=== PATIENT | female | born 1950 | race Caucasian/White ===

== ENCOUNTER 2022-11-02 15:56 | Outpatient (CLI) | payer MEDICARE, SELFPAY ==
[2022-11-02 14:59] LABS: Chloride* 97 mmol/L (96-114)
[2022-11-02 15:00] LABS: Albumin* 4.2 g/dL (3.3-5.0); Sodium* 131 mmol/L (135-149)
[2022-11-02 15:02] LABS: Cholesterol* 210 mg/dL (90-199); Creatinine* 0.7 mg/dL (0.5-1.5); Estimated Glomerular Filt Rate 92 ml/min
[2022-11-02 15:03] LABS: Alanine Aminotransferase* 19 U/L (4-35); Alkaline Phosphatase* 63 U/L (40-150); Aspartate Amino Transferase* 28 U/L (12-35); Bilirubin Total* 0.7 mg/dL (0.1-1.5); Blood Urea Nitrogen* 13 mg/dL (7-30); Calcium* 9.1 mg/dL (8.4-10.6); Carbon Dioxide* 28 mmol/L (20-32); Glucose* 90 mg/dL (60-115); Triglycerides* 70 mg/dL (40-149)
[2022-11-02 15:04] LABS: HDL Cholesterol* 78 mg/dL (>=50); LDL Cholesterol Calculated 118 mg/dL (<100)
[2022-11-02 15:19] LABS: Vitamin D 25 Hydroxy* 71 ng/mL (30-80)
[2022-11-02 15:37] LABS: Ferritin* 64.7 ng/mL (11.1-264.0)
[2022-11-05 00:33] LABS: Cortisol, Serum 10.9 ug/dL
== END 2022-11-02 15:57 | disposition home or self-care (01) ==
PROVIDERS: PCP Family Medicine; Visit Provider Family Medicine
DX: Z00.00 Encounter for general adult medical examination without abnormal findings (principal); R53.83 Other fatigue
CPT/HCPCS: 80053; 80061; 82306; 82533; 82728

== ENCOUNTER 2022-12-08 19:27 | Outpatient (CLI) | payer MEDICARE, SELFPAY ==
--- NOTE | 2022-12-15 14:21 | W.PM.SLEEP ---
Sleep Study Details Details Interpreting Provider: William Yeung MD Date of Sleep Study: 12/08/22 Note that the patient's name is Ms. Spelled on the scoring sheet. It should read nathaniel Krishna Sleep Study Details: STUDY TYPE:? Home ? BMI:? Not recorded ORDERING PROVIDER:Chris Short INDICATION:? Concerns about sleep apnea ? SLEEP SUMMARY:? 411.5 minutes monitored RESPIRATORY SUMMARY:? AHI 33.4, no significant positional variation Low oxygen 85 0.6% of study less than 90% Snoring 7% PERIODIC LIMB MOVEMENTS OF SLEEP:? Not recorded CARDIAC:? Range 47-99, mean 57.2 beats per minute IMPRESSION:? Severe obstructive sleep apnea RECOMMENDATION: AutoSet CPAP pressure 4-17 with close follow-up
== END 2022-12-08 19:28 | disposition home or self-care (01) ==
LOC: SLEEP 19:27
PROVIDERS: PCP Family Medicine; Visit Provider Family Medicine
DX: G47.33 Obstructive sleep apnea (adult) (pediatric) (principal)
CPT/HCPCS: 95806

== ENCOUNTER 2024-01-06 09:50 | Outpatient (CLI) | payer MEDICARE, SELFPAY ==
--- NOTE | 2024-01-06 10:00 | XR_ITS ---
Patient: HUDSON REBOLLAR Facility:?[facility] Patient ID:?[id number] Site Patient ID:?[id number]. Site :?[id number] Study:?DEXA-Bone Density-01/06/2024 10:23:12 AM Ordering Physician:?AREN AVITIA Final Report: DXA BONE MINERAL DENSITY STUDY Reason for exam: Post-menopausal. Current height (in): 64.5. Weight (lb): 134. Menopause age: 55. Ethnicity: White. 1. Have you had a previous hip or vertebral fracture? No. 2. Have you had any fractures during your adult life which did not result from significant trauma (e.g., auto accident)? No. 3. Did either of your parents have a hip fracture? No. 4. Do you smoke? No. 5. Have you ever taken Glucocorticoids? No. 6. Do you have rheumatoid arthritis? No. 7. Do you have secondary osteoporosis? No. 8. Do you drink 3 or more alcoholic drinks per day? No. 9. Are you being treated for osteoporosis? No. 10. Have you ever taken any of the following medications: Actonel, Evista, Fosamax, Miacalcin, Reclast, Boniva, Forteo, HRT (i.e. estrogen/hormone therapy), Protelos, Prolia, Vitamin D, Calcium, other ? please specify. ANSWER: Yes, Vitamin D. 11. Do you have any of the following medical conditions: Anorexia or bulimia, asthma or emphysema, end stage renal disease, hyperparathyroidism, any seizure disorders, cancer, inflammatory bowel diseases, hysterectomy, other ? please specify. ANSWER: Yes, hysterectomy. 12. What was your maximum height (inches)? 64. 13. Do you perform weight bearing exercise regularly? Yes. 14. Do you regularly consume dairy products? Yes. 15. Do you drink caffeinated beverages? No. 16. At what age did your period start? 13. 17. Are you premenopausal? Yes. 18. How many full term pregnancies have you had? 4. 19. Have you ever missed your period for more than 6 months in a row (not including or menopause)? No. TECHNIQUE: Bone mineral density study was performed using the [employer]. FINDINGS: The results of the study expressed as bone mineral density (BMD) are as follows: Lumbar spine L1 to L4: BMD: 0.661 g/cm2. T-score: -3.5. Z-score: -1.2. Neck Left: BMD: 0.591 g/cm2. T-score: -2.3. Z-score: -0.3. Right: BMD: 0.599 g/cm2. T-score: -2.2. Z-score: -0.2. Total Left: BMD: 0.735 g/cm2. T-score: -1.7. Z-score: 0.0. Right: BMD: 0.747 g/cm2. T-score: -1.6. Z-score: 0.1. IMPRESSION: Osteoporosis. *Comparison exams done prior to 03/2020 were performed on different unit, [employer]. Rafa Guerrero M.D. Body/Interventional Radiologist [email or web address] CANDACE/kalani D& Transcribed: 8:09 p.m. SP/Dictated by: Rafa Guerrero MD @ 01/06/2024 3:08:00 PM Signed by:?Rafa Guerrero MD @01/07/2024 10:10:55 AM (Electronic Signature)
== END 2024-01-06 09:51 | disposition home or self-care (01) ==
LOC: RAD 09:53
PROVIDERS: PCP Pediatrics; Visit Provider Pediatrics
DX: Z13.820 Encounter for screening for osteoporosis (principal); M81.0 Age-related osteoporosis without current pathological fracture; Z78.0 Asymptomatic menopausal state
CPT/HCPCS: 77080